=== PATIENT | male | born 1985 | race Caucasian/White ===

== ENCOUNTER 2019-08-03 07:47 | Emergency (ER) | payer MEDICAID ==
[~2019-08-03] VITALS: Ht 170.2 cm; Wt 82.0 kg
[2019-08-03] MEDS ORDERED: ZIPRASIDONE HCL 40MG CAPSULE PO ONE (08:30)
[2019-08-03 08:51] VITALS: BP 124/73
== END 2019-08-03 08:52 | disposition home or self-care (01) ==
LOC: ER 07:47
DX: Z76.0 Encounter for issue of repeat prescription (principal); F20.9 Schizophrenia, unspecified; F17.200 Nicotine dependence, unspecified, uncomplicated
CPT/HCPCS: 99283